=== PATIENT | male | born 1960 | race Caucasian/White ===

== ENCOUNTER 2023-04-10 21:27 | Emergency (ER) | payer OTHER ==
[~2023-04-10] VITALS: Ht 175.3 cm; Wt 82.6 kg
[2023-04-10 21:54] VITALS: BP_SYST 123
[2023-04-10] MEDS ORDERED: HYDROcodone/ACETAMIN 10-325 MG TAB PO ONE (23:45)
[2023-04-11] MEDS ORDERED: IBUPROFEN 600 MG TABLET PO ONE
[2023-04-11] MEDS ORDERED: NAPR-690 PO (00:18)
[2023-04-11 00:23] VITALS: BP_SYST 120
== END 2023-04-11 00:22 | disposition home or self-care (01) ==
LOC: SED 21:27
DX: S62.232A Other displaced fracture of base of first metacarpal bone, left hand, initial encounter for closed fracture (principal); I10 Essential (primary) hypertension; Z79.899 Other long term (current) drug therapy; W22.8XXA Striking against or struck by other objects, initial encounter; Y93.89 Activity, other specified; Y92.89 Other specified places as the place of occurrence of the external cause; Y99.8 Other external cause status
CPT/HCPCS: 99283